=== PATIENT | female | born 1975 | race Caucasian/White ===

== ENCOUNTER → 2024-08-27 06:19 | Day surgery (SDC) | payer BC, SELFPAY | LOC: GI 06:19 | PROVIDERS: ATTENDING PHYSICIAN Internal Medicine; FAMILY PHYSICIAN Family Medicine | DX: Z12.11 Encounter for screening for malignant neoplasm of colon (principal); K63.5 Polyp of colon | CPT/HCPCS: 45380; 88305 ==